=== PATIENT | female | born 1985 | race African-American/Black ===

== ENCOUNTER 2023-11-16 09:58 | Emergency (ER) | payer SELFPAY ==
[~2023-11-16] VITALS: Ht 162.6 cm; Wt 59.0 kg
[2023-11-16 10:01] VITALS: BP 137/80; PULSE 90; RESP 16; TEMP 98.7; O2SAT 98
== END 2023-11-16 10:30 | disposition left against medical advice (07) ==
LOC: ER 09:58
DX: R68.89 Other general symptoms and signs (principal); Z53.21 Procedure and treatment not carried out due to patient leaving prior to being seen by health care provider
CPT/HCPCS: 99281

== ENCOUNTER 2024-08-17 16:12 | Inpatient (IN) | payer OTHER ==
[~2024-08-17] VITALS: Ht 167.6 cm; Wt 58.1 kg
[2024-08-17] MEDS: PANTOPRAZOLE SODIUM 40 MG/VIAL IV STA (16:25)
[2024-08-17] MEDS: ONDANSETRON HCL 4MG/2ML INJ IV STA (16:25)
[2024-08-17] MEDS: MAGNESIUM/ALUMINUM HYDROXIDE/SIMETHICONE 30ML UDC PO STA (16:25)
[2024-08-17 17:45] LABS: BASOPHILS % 0.7 % (0.0-2.0); HEMATOCRIT. 49.5 % (36.0-48.0); LYMPHOCYTES % 65.4 % (20.0-50.0); MEAN CORPUSCULAR HEMOGLOBIN 33.9 pg (28.0-32.0); MEAN CORPUSCULAR HGB CONC 34.3 g/dL (31.0-37.0); MEAN CORPUSCULAR VOLUME 98.9 fL (81.0-99.0); NEUTROPHILS % 29.9 % (40.0-76.0); PLATELET 169 x1000/uL (130-400); RED BLOOD CELL COUNT 5.01 mill/uL (4.2-5.4)
[2024-08-17 17:52] LABS: CHLORIDE 102 mEq/L (98-107); POTASSIUM 3.3 mEq/L (3.5-5.1); SODIUM 141 mEq/L (136-145)
[2024-08-17 17:53] LABS: CALCIUM 8.7 mg/dL (8.7-10.4); CARBON DIOXIDE 26 mEq/L (21-32)
[2024-08-17] MEDS: DIPHENHYDRAMINE 50MG/ML VIAL IM ONE (17:53)
[2024-08-17] MEDS: HALOPERIDOL LACTATE 5MG/ML VIAL IM ONE (17:53)
[2024-08-17] MEDS: LORAZEPAM 2MG/ML INJ IM ONE (17:53)
[2024-08-17 17:55] LABS: PROTHROMBIN TIME 11.5 sec (9.6-11.0)
[2024-08-17 17:58] LABS: CREATININE 0.7 mg/dL (0.6-1.0); ETHANOL BLOOD 300 mg/dL (<10); GLUCOSE 100 mg/dL (70-105); UREA NITROGEN BLOOD 6 mg/dL (9-23)
[2024-08-17 18:00] LABS: ALANINE AMINOTRANSFERASE 91 IU/L (10-49); ALBUMIN 4.2 g/dL (3.2-4.8); ASPARTATE AMINOTRANSFERASE 487 IU/L (<34); BILIRUBIN DIRECT 0.3 mg/dL (<=3.0); BILIRUBIN TOTAL 0.8 mg/dL (0.1-1.0); PROTEIN TOTAL 7.1 g/dL (6.0-8.3)
[2024-08-17] MEDS: CEFTRIAXONE 1GM/50ML 50 ML IV ONE (21:58)
[2024-08-18 06:25] VITALS: BP 126/72; PULSE 105; RESP 19; TEMP 36.8628
[2024-08-18] MEDS ORDERED: ONDANSETRON HCL 4MG/2ML INJ IV PRN (14:15)
[2024-08-18] MEDS ORDERED: CLONIDINE 0.1MG TABLET PO PRN (14:15)
[2024-08-18] MEDS ORDERED: IPRATROPIUM/ALBUTEROL 0.5-3(2.5)MG/3ML NEB HHN PRN (14:15)
[2024-08-18] MEDS ORDERED: ACETAMINOPHEN 325MG TABLET PO PRN ×2 (14:15)
[2024-08-18] MEDS ORDERED: DOCUSATE SODIUM 100MG CAPSULE PO PRN (14:15)
[2024-08-18] MEDS ORDERED: SODIUM CHLORIDE 0.9% 500 ML IV NR (14:30)
[2024-08-18] MEDS: PANTOPRAZOLE SODIUM 40 MG/VIAL IV SCH (15:14)
[2024-08-18] MEDS: CHLORDIAZEPOXIDE 25MG CAPSULE PO SCH (15:14)
[2024-08-18] MEDS: THIAMINE HCL 100MG TABLET PO SCH (15:14)
[2024-08-18 16:00] VITALS: BP 135/104; PULSE 113; RESP 18; TEMP 36.44736; O2SAT 98
[2024-08-18] MEDS: MVI, ADULT NO.1 10 ML, FOLIC ACID 1 MG, THIAMINE HCL 100 MG in SODIUM CHLORIDE 0.9% 1,0... IV ONE (16:54)
[2024-08-18] MEDS: LORAZEPAM 2MG/ML INJ IV PRN (18:02)
[2024-08-18 20:00] VITALS: BP 144/99; PULSE 93; RESP 18; TEMP 37.11408; O2SAT 100
[2024-08-18 20:07] LABS: AMMONIA 45 uMol/L (<32); HCG SCREEN NEGATIVE
[2024-08-18 20:10] LABS: FOLIC ACID (FOLATE) SERUM > 20.00 ng/mL (>5.38); THYROID STIMULATING HORMONE 1.72 uIU/mL (0.55-4.78); VITAMIN B12 SERUM 958 pg/mL (211-911)
[2024-08-18] MEDS: SODIUM CHLORIDE 0.9% 1,000 ML IV SCH (23:57)
[2024-08-19] VITALS: BP 144/99; PULSE 93; RESP 18; TEMP 37.11408; O2SAT 100
[2024-08-19 04:00] VITALS: BP 137/97; PULSE 91; RESP 18; TEMP 36.89184; O2SAT 97
[2024-08-19 06:29] LABS: CHLORIDE 103 mEq/L (98-107); POTASSIUM 3.4 mEq/L (3.5-5.1); SODIUM 138 mEq/L (136-145)
[2024-08-19 06:32] LABS: CALCIUM 8.8 mg/dL (8.7-10.4); CARBON DIOXIDE 28 mEq/L (21-32)
[2024-08-19 06:37] LABS: CREATININE 0.7 mg/dL (0.6-1.0); GLUCOSE 68 mg/dL (70-105); UREA NITROGEN BLOOD 6 mg/dL (9-23)
[2024-08-19 06:38] LABS: ALANINE AMINOTRANSFERASE 82 IU/L (10-49)
[2024-08-19 06:39] LABS: ALBUMIN 3.5 g/dL (3.2-4.8); ASPARTATE AMINOTRANSFERASE 475 IU/L (<34); BILIRUBIN DIRECT 0.8 mg/dL (<=3.0)
[2024-08-19 06:40] LABS: BILIRUBIN TOTAL 2.1 mg/dL (0.1-1.0); PROTEIN TOTAL 5.8 g/dL (6.0-8.3)
[2024-08-19 06:45] LABS: HEPATITIS B SURFACE ANTIGEN NEGATIVE (Negative)
[2024-08-19 07:04] LABS: HEPATITIS B CORE AB IGM NEGATIVE (Negative)
[2024-08-19 07:05] LABS: HEPATITIS A AB IGM NEGATIVE (Negative); HEPATITIS C AB NON REACTIVE (Neg) (Negative)
[2024-08-19 07:22] LABS: BASOPHILS % 0.3 % (0.0-2.0); EOSINOPHILS % 0.4 % (0.0-5.0); HEMATOCRIT. 41.3 % (36.0-48.0); HEMOGLOBIN. 14.1 g/dL (12.0-16.0); LYMPHOCYTES % 70.4 % (20.0-50.0); MEAN CORPUSCULAR HEMOGLOBIN 34.2 pg (28.0-32.0); MEAN CORPUSCULAR HGB CONC 34.3 g/dL (31.0-37.0); MEAN CORPUSCULAR VOLUME 99.7 fL (81.0-99.0); MEAN PLATELET VOLUME 8.5 fl (7.4-10.4); MONOCYTES % 5.2 % (2.0-8.0); NEUTROPHILS % 23.7 % (40.0-76.0); PLATELET 94 x1000/uL (130-400); RED BLOOD CELL COUNT 4.14 mill/uL (4.2-5.4); RED CELL DISTRIBUTION WIDTH 13.5 % (11.6-14.6)
[2024-08-19] MEDS: FOLIC ACID 1MG TABLET PO SCH (09:04)
[2024-08-19] MEDS: MULTIVITAMINS,THER W-MINERALS TABLET PO SCH (09:04)
[2024-08-19] MEDS: FLUOXETINE HCL 10 MG CAPSULE PO SCH (11:22)
[2024-08-19] MEDS: POTASSIUM CHLORIDE 20MEQ TABLET SR PO NR (11:23)
[2024-08-19 12:00] VITALS: BP 135/93; PULSE 95; RESP 18; TEMP 36.1; O2SAT 99
[2024-08-19 16:00] VITALS: BP 131/89; PULSE 94; RESP 18; TEMP 36.1; O2SAT 100
[2024-08-19 20:00] VITALS: BP 140/96; PULSE 98; RESP 20; TEMP 36.7; O2SAT 99
[2024-08-19] MEDS: LACTULOSE 20G/30ML UDC PO SCH (22:46)
[2024-08-20] VITALS (7 sets, daily range): BP systolic 102–140; BP diastolic 66–98; PULSE 84–118; RESP 18–20; TEMP 36.2–37; O2SAT 98–100
[2024-08-20 06:45] LABS: CHLORIDE 104 mEq/L (98-107); POTASSIUM 3.4 mEq/L (3.5-5.1); SODIUM 139 mEq/L (136-145)
[2024-08-20 06:49] LABS: CALCIUM 9.1 mg/dL (8.7-10.4); CARBON DIOXIDE 27 mEq/L (21-32)
[2024-08-20 06:54] LABS: CREATININE 0.7 mg/dL (0.6-1.0); GLUCOSE 80 mg/dL (70-105)
[2024-08-20 06:55] LABS: ALBUMIN 3.5 g/dL (3.2-4.8)
[2024-08-20 06:56] LABS: ALANINE AMINOTRANSFERASE 88 IU/L (10-49); ASPARTATE AMINOTRANSFERASE 408 IU/L (<34); BILIRUBIN DIRECT 0.5 mg/dL (<=3.0); BILIRUBIN TOTAL 1.2 mg/dL (0.1-1.0); PROTEIN TOTAL 5.9 g/dL (6.0-8.3)
[2024-08-20 07:00] LABS: UREA NITROGEN BLOOD < 5 mg/dL (9-23)
[2024-08-20 07:41] LABS: BASOPHILS % 0.6 % (0.0-2.0); DIFFERENTIAL COMMENT 0; HEMATOCRIT. 40.4 % (36.0-48.0); HEMOGLOBIN. 13.9 g/dL (12.0-16.0); LYMPHOCYTES % 64.3 % (20.0-50.0); MEAN CORPUSCULAR HEMOGLOBIN 34.6 pg (28.0-32.0); MEAN CORPUSCULAR HGB CONC 34.4 g/dL (31.0-37.0); MEAN CORPUSCULAR VOLUME 100.6 fL (81.0-99.0); MONOCYTES % 5.1 % (2.0-8.0); PLATELET 88 x1000/uL (130-400); RED BLOOD CELL COUNT 4.02 mill/uL (4.2-5.4); RED CELL DISTRIBUTION WIDTH 13.5 % (11.6-14.6); WHITE BLOOD COUNT 2.6 x1000/uL (4.5-11.0)
[2024-08-20] MEDS: POTASSIUM CHLORIDE 20MEQ TABLET SR PO NR (13:30)
[2024-08-20] MEDS: TRAZODONE HCL 50MG TABLET PO PRN (21:36)
[2024-08-21] VITALS: BP 142/103; PULSE 98; RESP 18; TEMP 36.9; O2SAT 100
[2024-08-21 04:00] VITALS: BP 150/78; PULSE 96; RESP 18; TEMP 36.9; O2SAT 97
[2024-08-21 08:14] VITALS: BP 109/76; PULSE 95; RESP 20; TEMP 37; O2SAT 99
[2024-08-21 08:42] VITALS: BP 109/76; PULSE 95; RESP 20; TEMP 37; O2SAT 99
== END 2024-08-21 11:10 | disposition home or self-care, planned readmission (81) | DRG 378 ==
LOC: ER 16:12 → 7WST 21:37
PROVIDERS: ADMIT Internal Medicine; ATTEND Internal Medicine
PROC: 5A09357 Assistance with Respiratory Ventilation, Less than 24 Consecutive Hours, Continuous Positive Airway Pressure (ICD-10-PCS; principal; 2024-08-20)
DX: K92.0 Hematemesis (principal); E72.20 Disorder of urea cycle metabolism, unspecified; E87.6 Hypokalemia; F10.229 Alcohol dependence with intoxication, unspecified; F17.210 Nicotine dependence, cigarettes, uncomplicated; I10 Essential (primary) hypertension; K76.0 Fatty (change of) liver, not elsewhere classified; F32.9 Major depressive disorder, single episode, unspecified; G47.00 Insomnia, unspecified; Z79.899 Other long term (current) drug therapy; Y90.8 Blood alcohol level of 240 mg/100 ml or more
CPT/HCPCS: 36415; 71045; 76700; 80048; 80053; 80061; 80076; 80320; 82140; 82607; 82746; 83036; 84443; 84703; 85025; 85044; 86705; 86709; 87340; 93005; 99285; A4606; A4663; J0696; J1200; J1630; J2060; J2405; J2470; J3411; J3490; J7030; G0480

== ENCOUNTER 2024-11-07 12:36 | Inpatient (IN) | payer OTHER, MEDICAID ==
[~2024-11-07] VITALS: Ht 162.6 cm; Wt 44.0 kg
[2024-11-07] MEDS: ONDANSETRON HCL 4MG/2ML INJ IV ONE (14:04)
[2024-11-07] MEDS: PANTOPRAZOLE SODIUM 40 MG/VIAL IV ONE (14:04)
[2024-11-07] MEDS: SODIUM CHLORIDE 0.9% 1,000 ML IV ONE (14:04)
[2024-11-07 15:14] LABS: CHLORIDE 98 mEq/L (98-107); POTASSIUM 5.2 mEq/L (3.5-5.1); SODIUM 138 mEq/L (136-145)
[2024-11-07 15:15] LABS: BASOPHILS % 0.1 % (0.0-2.0); CALCIUM 11.2 mg/dL (8.7-10.4); CARBON DIOXIDE 20 mEq/L (21-32); DIFFERENTIAL COMMENT 0; HEMATOCRIT. 58.5 % (36.0-48.0); LYMPHOCYTES % 14.7 % (20.0-50.0); MEAN CORPUSCULAR HEMOGLOBIN 32.6 pg (28.0-32.0); MEAN CORPUSCULAR HGB CONC 32.4 g/dL (31.0-37.0); MEAN CORPUSCULAR VOLUME 100.7 fL (81.0-99.0); MEAN PLATELET VOLUME 9.2 fl (7.4-10.4); NEUTROPHILS % 79.2 % (40.0-76.0); PLATELET 165 x1000/uL (130-400); RED BLOOD CELL COUNT 5.81 mill/uL (4.2-5.4); RED CELL DISTRIBUTION WIDTH 15.3 % (11.6-14.6); WHITE BLOOD COUNT 11.6 x1000/uL (4.5-11.0)
[2024-11-07 15:20] LABS: GLUCOSE 87 mg/dL (70-105); UREA NITROGEN BLOOD 15 mg/dL (9-23)
[2024-11-07 15:38] LABS: CREATININE 2.1 mg/dL (0.6-1.0)
[2024-11-07 15:39] LABS: TROPONIN I HIGH SENSITIVITY 44 ng/L (3.0-34)
[2024-11-07 17:33] LABS: TROPONIN I HIGH SENSITIVITY 35 ng/L (3.0-34)
[2024-11-07 17:42] LABS: CHLORIDE 101 mEq/L (98-107); POTASSIUM 4.5 mEq/L (3.5-5.1); SODIUM 140 mEq/L (136-145)
[2024-11-07 17:44] LABS: CALCIUM 10.3 mg/dL (8.7-10.4); CARBON DIOXIDE 20 mEq/L (21-32)
[2024-11-07 17:49] LABS: CREATININE 1.9 mg/dL (0.6-1.0); GLUCOSE 61 mg/dL (70-105); UREA NITROGEN BLOOD 16 mg/dL (9-23)
[2024-11-07 17:50] LABS: ALANINE AMINOTRANSFERASE 47 IU/L (10-49); ALBUMIN 3.4 g/dL (3.2-4.8); ASPARTATE AMINOTRANSFERASE 63 IU/L (<34)
[2024-11-07 17:51] LABS: BILIRUBIN DIRECT 1.1 mg/dL (<=3.0); BILIRUBIN TOTAL 2.2 mg/dL (0.1-1.0); PROTEIN TOTAL 6.2 g/dL (6.0-8.3)
[2024-11-07] MEDS: DIAZEPAM 5 MG/ML 2ML SYR IV ONE (18:26)
[2024-11-07 19:15] LABS: CLARITY URINE TURBID (CLEAR); COLOR URINE ORANGE (YELLOW); GLUCOSE URINE NEGATIVE (NEGATIVE); KETONES URINE 1+ (NEGATIVE); LEUKOCYTE ESTERASE URINE TRACE (NEGATIVE); NITRITE URINE POSITIVE (NEGATIVE); OCCULT BLOOD URINE NEGATIVE (NEGATIVE); PH URINE 5.5 (4.5-8.0); PROTEIN URINE 1+ (NEGATIVE); SPECIFIC GRAVITY URINE 1.023 (1.005-1.030)
[2024-11-07 19:33] LABS: *AMPHETAMINES SCREEN URINE NEGATIVE (NEGATIVE); *BARBITURATES SCREEN URINE NEGATIVE (NEGATIVE); *BENZODIAZEPINES SCREEN URINE NEGATIVE (NEGATIVE); *COCAINE SCREEN URINE NEGATIVE (NEGATIVE); METHADONE URINE SCREEN NEGATIVE (NEGATIVE); OPIATES URINE SCREEN NEGATIVE (NEGATIVE)
[2024-11-07 19:34] LABS: CANNABINOID URINE SCREEN NEGATIVE (NEGATIVE); ECSTASY MDMA SCREEN URINE NEGATIVE (NEGATIVE); PHENCYCLIDINE URINE SCREEN NEGATIVE (NEGATIVE)
[2024-11-07 19:59] LABS: BACTERIA URINE 1+; COARSE GRANULAR CASTS URINE 0-5 /lpf; HYALINE CASTS URINE 0-5 /lpf; RBC URINE NONE SEEN /hpf (0-2); SQUAMOUS EPITHELIAL CELL URINE 1+ /lpf (RARE/1+); WBC URINE 0-2 /hpf (0-2)
[2024-11-07 20:30] VITALS: BP 149/92; PULSE 121; RESP 20; TEMP 37.2
[2024-11-08] VITALS: BP_SYST 128; BP_SYST 134; BP_DIAS 84; BP_DIAS 92; PULSE 130; PULSE 88; RESP 20; TEMP 36.8; TEMP 36.9; O2SAT 100
[2024-11-08] MEDS: METOPROLOL TARTRATE 25MG TABLET PO NR (00:43)
[2024-11-08 04:01] VITALS: BP 128/84; PULSE 88; RESP 20; TEMP 36.9; O2SAT 100
[2024-11-08 07:31] LABS: BASOPHILS % 0.1 % (0.0-2.0); DIFFERENTIAL COMMENT 0; HEMATOCRIT. 50.5 % (36.0-48.0); HEMOGLOBIN. 16.7 g/dL (12.0-16.0); LYMPHOCYTES % 20.9 % (20.0-50.0); MEAN CORPUSCULAR HEMOGLOBIN 33.2 pg (28.0-32.0); MEAN CORPUSCULAR VOLUME 100.6 fL (81.0-99.0); MEAN PLATELET VOLUME 9.5 fl (7.4-10.4); MONOCYTES % 5.3 % (2.0-8.0); NEUTROPHILS % 73.7 % (40.0-76.0); PLATELET 146 x1000/uL (130-400); RED BLOOD CELL COUNT 5.02 mill/uL (4.2-5.4); WHITE BLOOD COUNT 14.6 x1000/uL (4.5-11.0)
[2024-11-08 07:43] LABS: CHLORIDE 103 mEq/L (98-107); POTASSIUM 4.9 mEq/L (3.5-5.1); SODIUM 138 mEq/L (136-145)
[2024-11-08 07:45] LABS: CARBON DIOXIDE 23 mEq/L (21-32)
[2024-11-08 07:46] LABS: CALCIUM 10.2 mg/dL (8.7-10.4)
[2024-11-08 07:50] LABS: CREATININE 1.6 mg/dL (0.6-1.0)
[2024-11-08 07:51] LABS: ALANINE AMINOTRANSFERASE 47 IU/L (10-49); GLUCOSE 81 mg/dL (70-105); UREA NITROGEN BLOOD 22 mg/dL (9-23)
[2024-11-08 07:52] LABS: ALBUMIN 3.3 g/dL (3.2-4.8); ASPARTATE AMINOTRANSFERASE 67 IU/L (<34)
[2024-11-08 07:53] LABS: BILIRUBIN DIRECT 1.1 mg/dL (<=3.0); BILIRUBIN TOTAL 2.2 mg/dL (0.1-1.0); PROTEIN TOTAL 6.1 g/dL (6.0-8.3)
[2024-11-08 08:00] VITALS: BP 129/59; PULSE 70; RESP 16; TEMP 36.3; O2SAT 98
[2024-11-08] MEDS ORDERED: LORAZEPAM 1MG TABLET PO PRN (08:15)
[2024-11-08] MEDS: METOPROLOL TARTRATE 50MG TABLET PO SCH (09:10)
[2024-11-08] MEDS: PANTOPRAZOLE 40MG DR TABLET PO SCH (09:11)
[2024-11-08] MEDS: ONDANSETRON HCL 4MG/2ML INJ IV PRN (09:26)
[2024-11-08 12:00] VITALS: BP 113/78; PULSE 70; RESP 18; TEMP 36.6; O2SAT 95
[2024-11-08] MEDS: CEFTRIAXONE 1GM/50ML 50 ML IV SCH (13:11)
[2024-11-08 16:00] VITALS: BP 115/78; PULSE 82; RESP 16; TEMP 36.1; O2SAT 97
[2024-11-08 20:00] VITALS: BP 120/83; PULSE 87; RESP 18; TEMP 36.4; O2SAT 97
[2024-11-09] VITALS (7 sets, daily range): BP systolic 109–154; BP diastolic 73–93; PULSE 79–81; RESP 17–20; TEMP 36.3–37.3; O2SAT 98–100
== END 2024-11-09 16:45 | disposition short-term general hospital (02) | DRG 871 ==
LOC: ER 12:36 → EDBEDREQ 13:36 → 7WST 20:10
PROVIDERS: ADMIT Internal Medicine; ATTEND Internal Medicine
DX: A41.9 Sepsis, unspecified organism (principal); N17.0 Acute kidney failure with tubular necrosis; K92.0 Hematemesis; N39.0 Urinary tract infection, site not specified; F32.A Depression, unspecified; F10.129 Alcohol abuse with intoxication, unspecified; E87.5 Hyperkalemia; Y90.8 Blood alcohol level of 240 mg/100 ml or more
CPT/HCPCS: 36415; 71045; 80048; 80076; 80305; 81003; 83880; 84484; 85025; 86850; 86900; 93005; 99291; J0696; J2405; J2470; J7030